=== PATIENT | female | born 1995 | race Caucasian/White ===

== ENCOUNTER 2016-03-26 22:34 | Emergency (ER) | payer MEDICAID ==
[2016-03-26 22:51] VITALS: TEMP 98.6; BMI 39.4
--- NOTE | 2016-03-27 00:46 | EDPRACDOC ---
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 PT DENIES AGGRAVATING OR ALLEVIATING SYMPTOMS AT THIS TIME. Chest Pain Location: Reports: Substernal, Left Chest Pain Radiation: Reports: Arm (L) Symptoms Occur: Reports: Suddenly Cardiac Risk Factors: Reports: Family History (GREAT GREAT GRANDMOTHER IN 20'S PASSED WITH AMI) Cardiac History of: Reports: None PE Risk Factors: Reports: Control Pills Medications within 24 Hours: Reports: None Prehospital Care: Reports: None Pain Came On: Reports: Suddenly Pain Status: Present Now Pain Description: Reports: Pressure Pain Severity: Mild Pain Worsens With: Reports: Nothing Pain Improves With: Reports: Nothing Associated Signs and Symptoms: Reports: None <Sue Cavanaugh - Last Filed: 03/27/16 02:28> <La Ryan - Last Filed: 03/27/16 04:55> - General Information Chief Complaint: Generalized Weakness Stated Complaint: CHEST PRESSURE, NUMBNESS & HYPOTENSION Time Seen by Provider: 03/27/16 00:20 Home Medications: Home Medications Docusate Sodium [Colace] 100 mg PO TID #30 capsule 10/22/15 Allergies/Adverse Reactions: Allergies Allergy/AdvReac Type Severity Reaction Status Date / Time No Known Allergies Allergy Verified 10/22/15 00:38 ED Past Medical History - History Reviewed Yes Nurses notes reviewed and agree except as marked Travel Outside of [place] in the Last 3 Months?: No - Patient Medical History Psychological History: Reports: Depression Systemic History: Denies: Cancer Additional Past Medical History: INSOMNIA Surgical History: Denies: Hysterectomy - Family Medical History Reports: Hypertension (father, aunt, uncle,PGM), Diabetes (Uncle, PGF, Aunt), Cancer (PGF), Stroke (aunt), Cardiac Disorders (PGF, aunt, uncle, MGM) - Social Medical History Smoking Status: Never smoker ETOH: None Substance Abuse: None Lives With: Other Lives In: Home <Sue Cavanaugh - Last Filed: 03/27/16 02:28> EDM Review of Systems - Review of Systems ROS Negative Except as Marked: Yes All systems reviewed and were negative except as marked Constitutional: No Symptoms Reported. negative: Fever, Chills, Weakness, Fatigue, Loss of Appetite Eyes: No Symptoms Reported. negative: Redness, Blurred Vision, Double Vision, Discharge, Pain, Light Sensitive, Photophobia Ears: No Symptoms Reported. negative: Pain, Hearing Loss, Drainage, Ear Pulling Throat: No Symptoms Reported. negative: Pain, Swelling Nose: No Symptoms Reported. negative: Congestion, Bleeding, Discharge, Injection, Swelling, Deformity, Ecchymosis, Tender, Abrasion, Laceration Mouth: No Symptoms Reported. negative: Pain, Drooling Respiratory: No Symptoms Reported. negative: Cough, Brassy Cough, Barky Cough, Shortness of Breath, Wheezing, Hemoptysis Cardiovascular: Chest Pain. negative: Cyanosis, Edema, Orthopnea, Palpitations , PND, Syncope, Skin Mottling Gastrointestinal: No Symptoms Reported. negative: Pain, Constipation, Nausea, Vomiting, Diarrhea, Melena, Formula Intolerance Genitourinary: No Symptoms Reported. negative: Dysuria, Hematuria, Frequency, Discharge, Bleeding, Testicular Pain, Neurological: No Symptoms Reported. negative: Headache, Dizziness, Seizure, Numbness, Weakness, Speech Difficulty, Gait Difficulty Musculoskeletal: No Symptoms Reported. negative: Neck, Chestwall, Ribs, Back, Shoulder, Arm, Elbow, Forearm, Wrist, Hand, Pelvis, Hip, Femur, Knee, Leg, Ankle , Foot Integumentary: No Symptoms Reported. negative: Itching, Rash, Bruising, Wound Allergic/Immunologic: No Symptoms Reported. negative: Hives, Itching Hematologic: No Symptoms Reported. negative: Lymphadenopathy, Easy Bruising, Easy Bleeding Endocrine: No Symptoms Reported. negative: Weight Gain, Weight Loss Psychiatric: No Symptoms Reported. negative: Anxiety, Depression, Hallucinations, Insomnia, Suicidal <Sue Cavanaugh - Last Filed: 03/27/16 02:28> - Physical Exam Constitutional: No apparent distress, Alert (Awake) Oriented to: Time, Person, Place Last recorded Vital Signs: Last Vital Signs Temp 98.6 F 03/26/16 22:44 Pulse 70 03/27/16 00:00 Resp 20 03/27/16 00:00 BP 119/78 03/27/16 00:00 Pulse Ox 98 03/27/16 00:00 Oxygen Pulse Oxygen Saturation 98 O2 Device Room Air Oxygen Flow Rate Fraction of Inspired Oxygen ( FIO2) - HEENT Head: Normal ( normocephalic) Eye Exam: Normal (PERRL, EOMI, Sclera white) Oropharynx: Normal (Pharynx:Moist without exudate,Gums-no swelling) Tympanic Membrane: Normal ENT EAC: Normal TMJ: Normal Nose: No Symptoms Reported (septum midline) Neck: Normal (FROM, trachea at midline) - Respiratory/Cardiovascular Respiratory: Normal - CTA (BBS clear to auscultation without adventitious sounds ) Cardiovascular: Normal (RRR without murmur, gallop or rub) - GI Auscultation: Normal (NABS) Palpation: Normal (Soft,No rebound or guarding, non distended) Tenderness: Non tender Fish's Sign: Negative - Musculoskeletal Back: Normal (Non-Tender) Extremities: Normal (Normal tone, Pulses 2+ No cyanosis or edema, FROM) - Integumentary Skin: Normal, Warm, Dry Lymphatics: Normal (no adenopathy) - Neurologic Memory Impaired: Normal Motor Function: Normal (Normal tone, Pulses 2+ No cyanosis or edema, FROM) Cranial Nerve: Normal (CN II-X11 intact sensation, strength 5/5) Cerebellar: Normal Mood Description: Normal Perception: Normal <Sue Cavanaugh - Last Filed: 03/27/16 02:28> - Physical Exam Last recorded Vital Signs: Last Vital Signs Temp 98.6 F 03/26/16 22:44 Pulse 72 03/27/16 02:41 Resp 18 03/27/16 02:41 BP 101/67 03/27/16 02:41 Pulse Ox 99 03/27/16 02:41 Oxygen Pulse Oxygen Saturation 99 O2 Device Room Air Oxygen Flow Rate Fraction of Inspired Oxygen ( FIO2) <La Ryan - Last Filed: 03/27/16 04:55> ED Chest Pain Exam - Respiratory/Cardiovascular Respiratory: Normal - CTA Cardiovascular/Chest: Normal Radial Pulse: Normal Femoral Pulse: Normal Pedal Pulse: Normal Carotid Arteries: Normal Chest Palpation: Normal <Sue Cavanaugh - Last Filed: 03/27/16 02:28> - Differential Diagnosis Esophageal reflux/spasm, Gastritis, Myocardial infarction, Pericarditis, Pleuritis, Pneumonia - Action Patient received Aspirin within last 24 hours?: No ASA given in the ED: Yes Patient received Beta Gomez within last 24hrs: No Beta Gomez held due to: Other-specify below* (ATYPICAL CARDIAC SYMPTOMS) - Results All Results Reviewed and Normal except as Highlighted below: Yes 03/27/16 01:05 03/27/16 01:05 - EKG EKG #1 EKG Time: 00:32 -: Yes EKG interpreted by me Rate: bpm: 72 [place]: Normal Rhythm: NSR Block: None Hypertrophy: None - Diagnostic Imaging CXR Image interpreted by: Radiologist IMPRESSION: No active cardiopulmonary disease. <Sue Cavanaugh - Last Filed: 03/27/16 02:28> - Results 03/27/16 01:05 03/27/16 01:05 WBC 8.8 xk/uL (3.8-10.8) 03/27/16 01:05 RBC 4.34 xM/uL (4.20-5.40) 03/27/16 01:05 Hgb 12.7 g/dL (12.0-16.0) 03/27/16 01:05 Hct 37.6 % (36-47) 03/27/16 01:05 MCV 87 fL (81-99) 03/27/16 01:05 MCH 29.2 pg (27-32) 03/27/16 01:05 MCHC 33.7 g/dl (33-36) 03/27/16 01:05 RDW 13.0 % (11.5-14.5) 03/27/16 01:05 Plt Count 259 xk/uL (130-400) 03/27/16 01:05 MPV 8.1 fL (7.4-10.4) 03/27/16 01:05 Neut % (Auto) 60.8 % (45-76) 03/27/16 01:05 Lymph % (Auto) 32.2 % (17-44) 03/27/16 01:05 [place] % (Auto) 4.4 % (3-10) 03/27/16 01:05 Eos % (Auto) 1.8 % (0-5) 03/27/16 01:05 Baso % (Auto) 0.8 % (0-2) 03/27/16 01:05 Absolute Neuts (auto) 5.28 xk/uL (1.7-8.2) 03/27/16 01:05 Absolute Lymphs (auto) 2.82 xk/uL (0.65-4.75) 03/27/16 01:05 D-Dimer Quant (PE/DVT) 1552 ng/mL (<500) H 03/27/16 02:41 Sodium 140 mEq/L (137-146) 03/27/16 01:05 Potassium 3.8 mEq/L (3.5-5.1) 03/27/16 01:05 Chloride 104 mEq/L (98-107) 03/27/16 01:05 Carbon Dioxide 25 mMOL/L (22-33) 03/27/16 01:05 Anion Gap 15 mEq/L (8-16) 03/27/16 01:05 BUN 11 MG/DL (7-17) 03/27/16 01:05 Creatinine 0.70 MG/DL (0.52-1.04) 03/27/16 01:05 Estimated GFR (MDRD) > 60 mL/min (>=60) 03/27/16 01:05 Glucose 87 MG/DL (70-99) 03/27/16 01:05 Calculated Osmolality 267 MOs/Kg (270-290) L 03/27/16 01:05 Calcium 8.9 MG/DL (8.4-10.2) 03/27/16 01:05 Corrected Calcium 9.0 MG/DL (8.4-10.2) 03/27/16 01:05 Total Bilirubin 0.3 MG/DL (0.2-1.3) 03/27/16 01:05 AST 30 IU/L (14-36) 03/27/16 01:05 ALT 29 IU/L (9-52) 03/27/16 01:05 Alkaline Phosphatase 70 IU/L (38-126) 03/27/16 01:05 Troponin I < 0.01 ng/mL (<.04) 03/27/16 02:41 Total Protein 7.6 G/DL (6.3-8.2) 03/27/16 01:05 Albumin 3.9 G/DL (3.5-5.0) 03/27/16 01:05 Urine Color Yellow 03/27/16 00:35 Urine Clarity Clear 03/27/16 00:35 Urine pH 7.0 (5.0-8.0) 03/27/16 00:35 Ur Specific [place] 1.015 (1.003-1.035) 03/27/16 00:35 Urine Protein Neg (NEG/TRACE) 03/27/16 00:35 Urine Glucose (UA) Neg (NEGATIVE) 03/27/16 00:35 Urine Ketones Neg (NEGATIVE) 03/27/16 00:35 Urine Occult Blood 1+ (NEG/TRACE) H 03/27/16 00:35 Urine Nitrite Neg (NEGATIVE) 03/27/16 00:35 Urine Bilirubin Neg (NEGATIVE) 03/27/16 00:35 Urine Urobilinogen <2.0 MG/DL (0-1) 03/27/16 00:35 Ur Leukocyte Esterase Neg (NEGATIVE) 03/27/16 00:35 Urine RBC 0-2 (0-5) 03/27/16 00:35 Urine WBC 0-2 (0-5) 03/27/16 00:35 Ur Epithelial Cells 2+ 03/27/16 00:35 Urine Test Neg (NEGATIVE) 03/27/16 00:35 Urine Opiates Screen Neg (NEGATIVE) 03/27/16 00:35 Ur Oxycodone Screen Neg (NEGATIVE) 03/27/16 00:35 Urine Methadone Screen Neg (NEGATIVE) 03/27/16 00:35 Ur Barbiturates Screen Neg (NEGATIVE) 03/27/16 00:35 Ur Tricyclics Screen Neg (NEGATIVE) 03/27/16 00:35 Ur Phencyclidine Scrn Neg (NEGATIVE) 03/27/16 00:35 Ur Amphetamines Screen Neg (NEGATIVE) 03/27/16 00:35 U Methamphetamines Scrn Neg (NEGATIVE) 03/27/16 00:35 Urine MDMA Screen Neg (NEGATIVE) 03/27/16 00:35 U Benzodiazepines Scrn Neg (NEGATIVE) 03/27/16 00:35 Urine Cocaine Screen Neg (NEGATIVE) 03/27/16 00:35 Ur THC Screen Neg (NEGATIVE) 03/27/16 00:35 Lab Results 03/27/16 03/27/16 03/27/16 02:41 02:41 01:05 WBC 8.8 RBC 4.34 Hgb 12.7 Hct 37.6 MCV 87 MCH 29.2 MCHC 33.7 RDW 13.0 Plt Count 259 MPV 8.1 Neut % (Auto) 60.8 Lymph % (Auto) 32.2 [place] % (Auto) 4.4 Eos % (Auto) 1.8 Baso % (Auto) 0.8 Absolute Neuts (auto) 5.28 Absolute Lymphs (auto) 2.82 D-Dimer Quant (PE/DVT) 1552 H Sodium Potassium Chloride Carbon Dioxide Anion Gap BUN Creatinine Estimated GFR (MDRD) Glucose Calculated Osmolality Calcium Corrected Calcium Total Bilirubin AST ALT Alkaline Phosphatase Troponin I < 0.01 Total Protein Albumin Urine Color Urine Clarity Urine pH Ur Specific [place] Urine Protein Urine Glucose (UA) Urine Ketones Urine Occult Blood Urine Nitrite Urine Bilirubin Urine Urobilinogen Ur Leukocyte Esterase Urine RBC Urine WBC Ur Epithelial Cells Urine Test Urine Opiates Screen Ur Oxycodone Screen Urine Methadone Screen Ur Barbiturates Screen Ur Tricyclics Screen Ur Phencyclidine Scrn Ur Amphetamines Screen U Methamphetamines Scrn Urine MDMA Screen U Benzodiazepines Scrn Urine Cocaine Screen Ur THC Screen 03/27/16 03/27/16 03/27/16 01:05 00:35 00:35 WBC RBC Hgb Hct MCV MCH MCHC RDW Plt Count MPV Neut % (Auto) Lymph % (Auto) [place] % (Auto) Eos % (Auto) Baso % (Auto) Absolute Neuts (auto) Absolute Lymphs (auto) D-Dimer Quant (PE/DVT) Sodium 140 Potassium 3.8 Chloride 104 Carbon Dioxide 25 Anion Gap 15 BUN 11 Creatinine 0.70 Estimated GFR (MDRD) > 60 Glucose 87 Calculated Osmolality 267 L Calcium 8.9 Corrected Calcium 9.0 Total Bilirubin 0.3 AST 30 ALT 29 Alkaline Phosphatase 70 Troponin I < 0.01 Total Protein 7.6 Albumin 3.9 Urine Color Yellow Urine Clarity Clear Urine pH 7.0 Ur Specific [place] 1.015 Urine Protein Neg Urine Glucose (UA) Neg Urine Ketones Neg Urine Occult Blood 1+ H Urine Nitrite Neg Urine Bilirubin Neg Urine Urobilinogen <2.0 Ur Leukocyte Esterase Neg Urine RBC 0-2 Urine WBC 0-2 Ur Epithelial Cells 2+ Urine Test Urine Opiates Screen Neg Ur Oxycodone Screen Neg Urine Methadone Screen Neg Ur Barbiturates Screen Neg Ur Tricyclics Screen Neg Ur Phencyclidine Scrn Neg Ur Amphetamines Screen Neg U Methamphetamines Scrn Neg Urine MDMA Screen Neg U Benzodiazepines Scrn Neg Urine Cocaine Screen Neg Ur THC Screen Neg 03/27/16 00:35 WBC RBC Hgb Hct MCV MCH MCHC RDW Plt Count MPV Neut % (Auto) Lymph % (Auto) [place] % (Auto) Eos % (Auto) Baso % (Auto) Absolute Neuts (auto) Absolute Lymphs (auto) D-Dimer Quant (PE/DVT) Sodium Potassium Chloride Carbon Dioxide Anion Gap BUN Creatinine Estimated GFR (MDRD) Glucose Calculated Osmolality Calcium Corrected Calcium Total Bilirubin AST ALT Alkaline Phosphatase Troponin I Total Protein Albumin Urine Color Urine Clarity Urine pH Ur Specific [place] Urine Protein Urine Glucose (UA) Urine Ketones Urine Occult Blood Urine Nitrite Urine Bilirubin Urine Urobilinogen Ur Leukocyte Esterase Urine RBC Urine WBC Ur Epithelial Cells Urine Test Neg Urine Opiates Screen Ur Oxycodone Screen Urine Methadone Screen Ur Barbiturates Screen Ur Tricyclics Screen Ur Phencyclidine Scrn Ur Amphetamines Screen U Methamphetamines Scrn Urine MDMA Screen U Benzodiazepines Scrn Urine Cocaine Screen Ur THC Screen Laboratory Results - last 24 hr 03/27/16 03/27/16 03/27/16 00:35 00:35 00:35 WBC RBC Hgb Hct MCV MCH MCHC RDW Plt Count MPV Neut % (Auto) Lymph % (Auto) [place] % (Auto) Eos % (Auto) Baso % (Auto) Absolute Neuts (auto) Absolute Lymphs (auto) D-Dimer Quant (PE/DVT) Sodium Potassium Chloride Carbon Dioxide Anion Gap BUN Creatinine Estimated GFR (MDRD) Glucose Calculated Osmolality Calcium Corrected Calcium Total Bilirubin AST ALT Alkaline Phosphatase Troponin I Total Protein Albumin Urine Color Yellow Urine Clarity Clear Urine pH 7.0 Ur Specific [place] 1.015 Urine Protein Neg Urine Glucose (UA) Neg Urine Ketones Neg Urine Occult Blood 1+ H Urine Nitrite Neg Urine Bilirubin Neg Urine Urobilinogen <2.0 Ur Leukocyte Esterase Neg Urine RBC 0-2 Urine WBC 0-2 Ur Epithelial Cells 2+ Urine Test Neg Urine Opiates Screen Neg Ur Oxycodone Screen Neg Urine Methadone Screen Neg Ur Barbiturates Screen Neg Ur Tricyclics Screen Neg Ur Phencyclidine Scrn Neg Ur Amphetamines Screen Neg U Methamphetamines Scrn Neg Urine MDMA Screen Neg U Benzodiazepines Scrn Neg Urine Cocaine Screen Neg Ur THC Screen Neg 03/27/16 03/27/16 03/27/16 01:05 01:05 02:41 WBC 8.8 RBC 4.34 Hgb 12.7 Hct 37.6 MCV 87 MCH 29.2 MCHC 33.7 RDW 13.0 Plt Count 259 MPV 8.1 Neut % (Auto) 60.8 Lymph % (Auto) 32.2 [place] % (Auto) 4.4 Eos % (Auto) 1.8 Baso % (Auto) 0.8 Absolute Neuts (auto) 5.28 Absolute Lymphs (auto) 2.82 D-Dimer Quant (PE/DVT) Sodium 140 Potassium 3.8 Chloride 104 Carbon Dioxide 25 Anion Gap 15 BUN 11 Creatinine 0.70 Estimated GFR (MDRD) > 60 Glucose 87 Calculated Osmolality 267 L Calcium 8.9 Corrected Calcium 9.0 Total Bilirubin 0.3 AST 30 ALT 29 Alkaline Phosphatase 70 Troponin I < 0.01 < 0.01 Total Protein 7.6 Albumin 3.9 Urine Color Urine Clarity Urine pH Ur Specific [place] Urine Protein Urine Glucose (UA) Urine Ketones Urine Occult Blood Urine Nitrite Urine Bilirubin Urine Urobilinogen Ur Leukocyte Esterase Urine RBC Urine WBC Ur Epithelial Cells Urine Test Urine Opiates Screen Ur Oxycodone Screen Urine Methadone Screen Ur Barbiturates Screen Ur Tricyclics Screen Ur Phencyclidine Scrn Ur Amphetamines Screen U Methamphetamines Scrn Urine MDMA Screen U Benzodiazepines Scrn Urine Cocaine Screen Ur THC Screen 03/27/16 02:41 WBC RBC Hgb Hct MCV MCH MCHC RDW Plt Count MPV Neut % (Auto) Lymph % (Auto) [place] % (Auto) Eos % (Auto) Baso % (Auto) Absolute Neuts (auto) Absolute Lymphs (auto) D-Dimer Quant (PE/DVT) 1552 H Sodium Potassium Chloride Carbon Dioxide Anion Gap BUN Creatinine Estimated GFR (MDRD) Glucose Calculated Osmolality Calcium Corrected Calcium Total Bilirubin AST ALT Alkaline Phosphatase Troponin I Total Protein Albumin Urine Color Urine Clarity Urine pH Ur Specific [place] Urine Protein Urine Glucose (UA) Urine Ketones Urine Occult Blood Urine Nitrite Urine Bilirubin Urine Urobilinogen Ur Leukocyte Esterase Urine RBC Urine WBC Ur Epithelial Cells Urine Test Urine Opiates Screen Ur Oxycodone Screen Urine Methadone Screen Ur Barbiturates Screen Ur Tricyclics Screen Ur Phencyclidine Scrn Ur Amphetamines Screen U Methamphetamines Scrn Urine MDMA Screen U Benzodiazepines Scrn Urine Cocaine Screen Ur THC Screen Laboratory Results 03/27/16 01:05 03/27/16 01:05 - Diagnostic Imaging CXR Patient Name: RUPINDER HERNANDEZ LOC: ED : 1995 AGE: 20 Order Date:03/27/16 Date of Service: Report # [id number] Ord Physician: Sue Cavanaugh Exam # [id number] Emergency Physician: La Ryan MD Exam(s): [id number] CT/CT ANGIO CHEST CLINICAL DATA: Acute onset of generalized chest pain and elevated D-dimer. Weakness and hypotension. Initial encounter. EXAM: CT ANGIOGRAPHY CHEST WITH CONTRAST TECHNIQUE: Multidetector CT imaging of the chest was performed using the standard protocol during bolus administration of intravenous contrast. Multiplanar CT image reconstructions and MIPs were obtained to evaluate the vascular anatomy. CONTRAST: 80 mL of Isovue 370 IV contrast COMPARISON: Chest radiograph performed earlier today at 1:09 a.m. FINDINGS: There is no evidence of pulmonary embolus. The lungs appear essentially clear bilaterally. There is no evidence of significant focal consolidation, pleural effusion or pneumothorax. No masses are identified; no abnormal focal contrast enhancement is seen. The mediastinum is unremarkable in appearance. No mediastinal lymphadenopathy is seen. No pericardial effusion is identified. Residual thymic tissue is within normal limits. The great vessels are grossly unremarkable in appearance. Incidental note is made of a direct origin of the left vertebral artery from the aortic arch. No axillary lymphadenopathy is seen. The visualized portions of the thyroid gland are unremarkable in appearance. The visualized portions of the liver and spleen are unremarkable. The visualized portions of the pancreas, gallbladder, stomach, adrenal glands and kidneys are within normal limits. No acute osseous abnormalities are seen. Review of the MIP images confirms the above findings. IMPRESSION: No evidence of pulmonary embolus. Lungs clear bilaterally. Electronically Signed By: Tom Resendiz M.D. On: 03/27/2016 04:49 Electronically Signed By: Tom Resendiz MD Electronically Signed Date/Time: 451 Dictate Date/Time: 03/27/16446 Technologist: Melanie Rodrigez Transcribed By: Hugo Transcribed Date/Time: 03/27/16 0449 <La Ryan - Last Filed: 03/27/16 04:55> <Sue Cavanaugh - Last Filed: 03/27/16 02:28> - Departure Disposition: Home Education/Counseling Given To: Patient Education/Counseling Given Regarding: Diagnosis, Treatment, Prognosis <La Ryan N - Last Filed: 03/27/16 04:55> - Departure Condition: Good Final Diagnosis: Atypical chest pain Instructions: Weakness (General), Chest Pain (ED), Chest Wall Pain Referrals: None,No Provider [Primary Care Provider] - One Week Prescriptions: No Action Docusate Sodium [Colace] 100 mg PO TID #30 capsule
[2016-03-27 01:01] LABS: LEUKOCYTES/URINE NEG (NEGATIVE); NITRITE/URINE NEG (NEGATIVE); RBC/URINE 0-2 (0-5); URINE OCCULT BLOOD 1+ (NEG/TRACE); WBC/URINE 0-2 (0-5)
[2016-03-27 01:20] LABS: AUTOMATED BASOPHIL 0.8 % (0-2); AUTOMATED EOSINOPHIL 1.8 % (0-5); AUTOMATED LYMPH 32.2 % (17-44); AUTOMATED MONOCYTE 4.4 % (3-10); AUTOMATED NEUTROPHIL 60.8 % (45-76); MPV 8.1 fL (7.4-10.4)
[2016-03-27 01:27] LABS: BLOOD UREA NITROGEN 11 MG/DL (7-17); CALCIUM 8.9 MG/DL (8.4-10.2); CALCULATED OSMOLALITY 267 MOs/Kg (270-290); CHLORIDE 104 mEq/L (98-107); GLUCOSE 87 MG/DL (70-99); SODIUM LEVEL 140 mEq/L (137-146); TOTAL PROTEIN 7.6 G/DL (6.3-8.2)
[2016-03-27 01:29] LABS: ALL NEG? YES; MDMA* NEG (NEGATIVE); METHAMPHETAMINES NEG (NEGATIVE); OXYCODONE NEG (NEGATIVE)
--- NOTE | 2016-03-27 01:52 | DIRPT ---
CLINICAL DATA: Chest pain. Weakness. Low blood pressure. EXAM: CHEST 2 VIEW COMPARISON: 02/24/2014 FINDINGS: The heart size and mediastinal contours are within normal limits. Both lungs are clear. The visualized skeletal structures are unremarkable. IMPRESSION: No active cardiopulmonary disease. Electronically Signed By: Brett Mina M.D. On: 03/27/2016 01:49
[2016-03-27] MEDS ORDERED: ASPIRIN 325 MG TAB PO ONE (02:40)
[2016-03-27] MEDS ORDERED: Pharmacy Review for Metformin - IV Contrast Given SCH (04:00)
--- NOTE | 2016-03-27 04:51 | DIRPT ---
CLINICAL DATA: Acute onset of generalized chest pain and elevated D-dimer. Weakness and hypotension. Initial encounter. EXAM: CT ANGIOGRAPHY CHEST WITH CONTRAST TECHNIQUE: Multidetector CT imaging of the chest was performed using the standard protocol during bolus administration of intravenous contrast. Multiplanar CT image reconstructions and MIPs were obtained to evaluate the vascular anatomy. CONTRAST: 80 mL of Isovue 370 IV contrast COMPARISON: Chest radiograph performed earlier today at 1:09 a.m. FINDINGS: There is no evidence of pulmonary embolus. The lungs appear essentially clear bilaterally. There is no evidence of significant focal consolidation, pleural effusion or pneumothorax. No masses are identified; no abnormal focal contrast enhancement is seen. The mediastinum is unremarkable in appearance. No mediastinal lymphadenopathy is seen. No pericardial effusion is identified. Residual thymic tissue is within normal limits. The great vessels are grossly unremarkable in appearance. Incidental note is made of a direct origin of the left vertebral artery from the aortic arch. No axillary lymphadenopathy is seen. The visualized portions of the thyroid gland are unremarkable in appearance. The visualized portions of the liver and spleen are unremarkable. The visualized portions of the pancreas, gallbladder, stomach, adrenal glands and kidneys are within normal limits. No acute osseous abnormalities are seen. Review of the MIP images confirms the above findings. IMPRESSION: No evidence of pulmonary embolus. Lungs clear bilaterally. Electronically Signed By: Tom Resendiz M.D. On: 03/27/2016 04:49
[2016-03-27 05:04] VITALS: BP 115/64; PULSE 75
== END 2016-03-27 05:04 | disposition home or self-care (01) ==
LOC: ED 22:34
DX: R07.89 Other chest pain (principal); Z82.49 Family history of ischemic heart disease and other diseases of the circulatory system
CPT/HCPCS: 36415; 71020; 71275; 80053; 80307; 81001; 81025; 84484; 85025; 85379; 93005; 99283; A9698; J3490

== ENCOUNTER 2016-04-04 04:37 | Inpatient (IN) | payer MEDICAID ==
[2016-04-04 04:56] VITALS: BMI 39.3
[2016-04-04] MEDS ORDERED: ONDANSETRON HCL 4 MG/2 ML VIAL IV ONE (05:04)
[2016-04-04] MEDS ORDERED: HYDROmorphone 1 MG INJECTION IV ONE ×2 (05:04→08:06)
[2016-04-04] MEDS ORDERED: NS 1,000 ML IV ONE ×2 (05:04→06:51)
--- NOTE | 2016-04-04 05:05 | EDPRACDOC ---
- General Information Information Source: Patient Mode Of Arrival: Car - History of Present Illness Onset: 0200 Pain Location: Reports: Diffuse Pain Context: Reports: Spontaneous Pain Severity: Mild Pain Quality: Reports: Aching, Colicky Pain Radiation: Reports: No Radiation Last Menstrual Period: 03/15/16 : No Abortus: 0 Blood Type: B+ <Shmuel Villalpando - Last Filed: 04/04/16 06:50> <Kuldip Silva - Last Filed: 04/04/16 08:54> - General Information Chief Complaint: Abdominal Pain Stated Complaint: ABD PAIN Time Seen by Provider: 04/04/16 05:03 Home Medications: Home Medications Fluoxetine [Prozac] 20 mg PO DAILY 04/04/16 Norgestimate-Ethinyl Estradiol [Trinessa Tablet] 1 each PO DAILY 04/04/16 Trazodone HCl [Desyrel] 25 mg PO QHS 04/04/16 Allergies/Adverse Reactions: Allergies Allergy/AdvReac Type Severity Reaction Status Date / Time No Known Allergies Allergy Verified 04/04/16 04:52 - History of Present Illness HPI: PATIENT PRESENTS C/O ABDOMINAL PAIN FOR 1 WEEK INTERMITTENT CRAMPING RADIATES TO BACK. SEVERE DIARRHEA. NO FEVER. NO N/V (Kwasi,Shmuel) ED Past Medical History - History Reviewed Yes Nurses notes reviewed and agree except as marked Travel Outside of [place] in the Last 3 Months?: No - Patient Medical History Psychological History: Denies: Depression Systemic History: Denies: Cancer Additional Past Medical History: INSOMNIA Surgical History: Denies: Hysterectomy - Family Medical History Reports: Hypertension (father, aunt, uncle,PGM), Diabetes (Uncle, PGF, Aunt), Cancer (PGF), Stroke (aunt), Cardiac Disorders (PGF, aunt, uncle, MGM) - Social Medical History Smoking Status: Never smoker ETOH: None Substance Abuse: None Lives With: Family Lives In: Home <Shmuel Villalpando - Last Filed: 04/04/16 06:50> EDM Review of Systems - Review of Systems ROS Negative Except as Marked: Yes All systems reviewed and were negative except as marked Constitutional: No Symptoms Reported. negative: Fever, Chills, Weakness, Fatigue, Loss of Appetite Eyes: No Symptoms Reported. negative: Redness, Blurred Vision, Double Vision, Discharge, Pain, Light Sensitive, Photophobia Ears: No Symptoms Reported. negative: Pain, Hearing Loss, Drainage, Ear Pulling Throat: No Symptoms Reported. negative: Pain, Swelling Nose: No Symptoms Reported. negative: Congestion, Bleeding, Discharge, Injection, Swelling, Deformity, Ecchymosis, Tender, Abrasion, Laceration Mouth: No Symptoms Reported. negative: Pain, Drooling Respiratory: No Symptoms Reported. negative: Cough, Brassy Cough, Barky Cough, Shortness of Breath, Wheezing, Hemoptysis Cardiovascular: No Symptoms Reported. negative: Chest Pain, Palpitations, Syncope, Edema, Orthopnea, PND, Skin Mottling, Cyanosis Gastrointestinal: Diarrhea, Pain. negative: Constipation, Formula Intolerance, Melena, Nausea, Vomiting Genitourinary: No Symptoms Reported. negative: Dysuria, Hematuria, Frequency, Discharge, Bleeding, Testicular Pain, Neurological: No Symptoms Reported. negative: Headache, Dizziness, Seizure, Numbness, Weakness, Speech Difficulty, Gait Difficulty Musculoskeletal: No Symptoms Reported. negative: Neck, Chestwall, Ribs, Back, Shoulder, Arm, Elbow, Forearm, Wrist, Hand, Pelvis, Hip, Femur, Knee, Leg, Ankle , Foot Integumentary: No Symptoms Reported. negative: Itching, Rash, Bruising, Wound Allergic/Immunologic: No Symptoms Reported. negative: Hives, Itching Hematologic: No Symptoms Reported. negative: Lymphadenopathy, Easy Bruising, Easy Bleeding Endocrine: No Symptoms Reported. negative: Weight Gain, Weight Loss Psychiatric: No Symptoms Reported. negative: Anxiety, Depression, Hallucinations, Insomnia, Suicidal <VillalpandoShmuel olivares - Last Filed: 04/04/16 06:50> - Physical Exam Constitutional: Alert (Awake), No apparent distress Oriented to: Time, Person, Place - HEENT Head: Normal ( normocephalic) Eye Exam: Normal (PERRL, EOMI, Sclera white) Oropharynx: Normal (Pharynx:Moist without exudate,Gums-no swelling) Tympanic Membrane: Normal ENT EAC: Normal TMJ: Normal Nose: No Symptoms Reported (septum midline) Neck: Normal (FROM, trachea at midline) - Respiratory/Cardiovascular Respiratory: Normal - CTA (BBS clear to auscultation without adventitious sounds ) Cardiovascular: Normal (RRR without murmur, gallop or rub) - GI Auscultation: Normal (NABS) Palpation: Normal (Soft,No rebound or guarding, non distended) Tenderness: Non tender Fish's Sign: Negative - Musculoskeletal Back: Normal (Non-Tender) Extremities: Normal (Normal tone, Pulses 2+ No cyanosis or edema, FROM) - Integumentary Skin: Normal, Warm, Dry Lymphatics: Normal (no adenopathy) - Neurologic Memory Impaired: Normal Motor Function: Normal (Normal tone, Pulses 2+ No cyanosis or edema, FROM) Cranial Nerve: Normal (CN II-X11 intact sensation, strength 5/5) Cerebellar: Normal Mood Description: Normal Perception: Normal <Shmuel Villalpando - Last Filed: 04/04/16 06:50> - Results 04/04/16 05:25 04/04/16 05:25 <Shmuel Villalpando - Last Filed: 04/04/16 06:50> - Results 04/04/16 05:25 04/04/16 05:25 <Kuldip Silva - Last Filed: 04/04/16 08:54> - Results WBC 12.7 xk/uL (3.8-10.8) H 04/04/16 05:25 RBC 4.36 xM/uL (4.20-5.40) 04/04/16 05:25 Hgb 12.6 g/dL (12.0-16.0) 04/04/16 05:25 Hct 38.2 % (36-47) 04/04/16 05:25 MCV 88 fL (81-99) 04/04/16 05:25 MCH 28.9 pg (27-32) 04/04/16 05:25 MCHC 33.0 g/dl (33-36) 04/04/16 05:25 RDW 12.9 % (11.5-14.5) 04/04/16 05:25 Plt Count 247 xk/uL (130-400) 04/04/16 05:25 MPV 8.1 fL (7.4-10.4) 04/04/16 05:25 Neut % (Auto) 79.3 % (45-76) H 04/04/16 05:25 Lymph % (Auto) 15.3 % (17-44) L 04/04/16 05:25 [place] % (Auto) 4.0 % (3-10) 04/04/16 05:25 Eos % (Auto) 0.8 % (0-5) 04/04/16 05:25 Baso % (Auto) 0.6 % (0-2) 04/04/16 05:25 Absolute Neuts (auto) 10.03 xk/uL (1.7-8.2) H 04/04/16 05:25 Absolute Lymphs (auto) 1.91 xk/uL (0.65-4.75) 04/04/16 05:25 Sodium 143 mEq/L (137-146) 04/04/16 05:25 Potassium 3.5 mEq/L (3.5-5.1) 04/04/16 05:25 Chloride 107 mEq/L (98-107) 04/04/16 05:25 Carbon Dioxide 22 mMOL/L (22-33) 04/04/16 05:25 Anion Gap 18 mEq/L (8-16) H 04/04/16 05:25 BUN 8 MG/DL (7-17) 04/04/16 05:25 Creatinine 0.60 MG/DL (0.52-1.04) 04/04/16 05:25 Estimated GFR (MDRD) > 60 mL/min (>=60) 04/04/16 05:25 Glucose 103 mg/dL (70-99) H 04/04/16 05:25 Calculated Osmolality 273 MOs/Kg (270-290) 04/04/16 05:25 Calcium 9.5 MG/DL (8.4-10.2) 04/04/16 05:25 Total Bilirubin 0.3 MG/DL (0.2-1.3) 04/04/16 05:25 AST 24 IU/L (14-36) 04/04/16 05:25 ALT 40 IU/L (9-52) 04/04/16 05:25 Alkaline Phosphatase 73 IU/L (38-126) 04/04/16 05:25 Total Protein 7.8 G/DL (6.3-8.2) 04/04/16 05:25 Albumin 4.2 G/DL (3.5-5.0) 04/04/16 05:25 Lipase 46884 U/L (23-300) H 04/04/16 05:25 Urine Color Pale yellow 04/04/16 04:45 Urine Clarity Clear 04/04/16 04:45 Urine pH 6.0 (5.0-8.0) 04/04/16 04:45 Ur Specific [place] 1.005 (1.003-1.035) 04/04/16 04:45 Urine Protein Neg (NEG/TRACE) 04/04/16 04:45 Urine Glucose (UA) Neg (NEGATIVE) 04/04/16 04:45 Urine Ketones Neg (NEGATIVE) 04/04/16 04:45 Urine Occult Blood 1+ (NEG/TRACE) H 04/04/16 04:45 Urine Nitrite Neg (NEGATIVE) 04/04/16 04:45 Urine Bilirubin Neg (NEGATIVE) 04/04/16 04:45 Urine Urobilinogen <2.0 MG/DL (0-1) 04/04/16 04:45 Ur Leukocyte Esterase Neg (NEGATIVE) 04/04/16 04:45 Urine RBC 0-2 (0-5) 04/04/16 04:45 Ur Epithelial Cells Occ 04/04/16 04:45 Urine Bacteria Few (NEG/FEW) 04/04/16 04:45 Urine Test Neg (NEGATIVE) 04/04/16 04:45 Lab Results 04/04/16 04/04/16 04/04/16 05:25 05:25 04:45 WBC 12.7 H RBC 4.36 Hgb 12.6 Hct 38.2 MCV 88 MCH 28.9 MCHC 33.0 RDW 12.9 Plt Count 247 MPV 8.1 Neut % (Auto) 79.3 H Lymph % (Auto) 15.3 L [place] % (Auto) 4.0 Eos % (Auto) 0.8 Baso % (Auto) 0.6 Absolute Neuts (auto) 10.03 H Absolute Lymphs (auto) 1.91 Sodium 143 Potassium 3.5 Chloride 107 Carbon Dioxide 22 Anion Gap 18 H BUN 8 Creatinine 0.60 Estimated GFR (MDRD) > 60 Glucose 103 H Calculated Osmolality 273 Calcium 9.5 Total Bilirubin 0.3 AST 24 ALT 40 Alkaline Phosphatase 73 Total Protein 7.8 Albumin 4.2 Lipase 48604 H Urine Color Pale yellow Urine Clarity Clear Urine pH 6.0 Ur Specific [place] 1.005 Urine Protein Neg Urine Glucose (UA) Neg Urine Ketones Neg Urine Occult Blood 1+ H Urine Nitrite Neg Urine Bilirubin Neg Urine Urobilinogen <2.0 Ur Leukocyte Esterase Neg Urine RBC 0-2 Ur Epithelial Cells Occ Urine Bacteria Few Urine Test 04/04/16 04:45 WBC RBC Hgb Hct MCV MCH MCHC RDW Plt Count MPV Neut % (Auto) Lymph % (Auto) [place] % (Auto) Eos % (Auto) Baso % (Auto) Absolute Neuts (auto) Absolute Lymphs (auto) Sodium Potassium Chloride Carbon Dioxide Anion Gap BUN Creatinine Estimated GFR (MDRD) Glucose Calculated Osmolality Calcium Total Bilirubin AST ALT Alkaline Phosphatase Total Protein Albumin Lipase Urine Color Urine Clarity Urine pH Ur Specific [place] Urine Protein Urine Glucose (UA) Urine Ketones Urine Occult Blood Urine Nitrite Urine Bilirubin Urine Urobilinogen Ur Leukocyte Esterase Urine RBC Ur Epithelial Cells Urine Bacteria Urine Test Neg (Kuldip Silva) Decision Time to Discharge: 06:50 - Departure Yes I personally saw and evaluated the patient. Disposition: Home Education/Counseling Given To: Patient Education/Counseling Given Regarding: Diagnosis, Treatment, Prognosis, Follow Up <Shmuel Villalpando - Last Filed: 04/04/16 06:50> - Departure Disposition: Admit IP To This Hospital Decision to Admit Time: 08:54 Decision to admit date: 04/04/16 Decision to admit: from ED - Physician Consulted Hospitalist Time Called: 08:54 Provider Called: Taylor Mclaughlin Time Certified Dialysis Technician Returned Call: 08:54 <Kuldip Silva - Last Filed: 04/04/16 08:54> - Departure Condition: Stable Final Diagnosis: Abdominal pain Pancreatitis Qualifiers: Chronicity: acute Pancreatitis type: idiopathic Acute pancreatitis complication : no infection or necrosis Qualified Code(s): K85.00 - Idiopathic acute pancreatitis without necrosis or infection Referrals: None,No Provider [Primary Care Provider] - One Week Rafat Nesbitt MD [Staff Physician] - One Week Prescriptions: No Action Trazodone HCl [Desyrel] 25 mg PO QHS Fluoxetine [Prozac] 20 mg PO DAILY Norgestimate-Ethinyl Estradiol [Trinessa Tablet] 1 each PO DAILY
[2016-04-04 05:25] LABS: LEUKOCYTES/URINE NEG (NEGATIVE); NITRITE/URINE NEG (NEGATIVE); RBC/URINE 0-2 (0-5); URINE OCCULT BLOOD 1+ (NEG/TRACE)
[2016-04-04 05:38] LABS: AUTOMATED BASOPHIL 0.6 % (0-2); AUTOMATED EOSINOPHIL 0.8 % (0-5); AUTOMATED LYMPH 15.3 % (17-44); AUTOMATED NEUTROPHIL 79.3 % (45-76); MPV 8.1 fL (7.4-10.4)
[2016-04-04 05:49] LABS: BLOOD UREA NITROGEN 8 MG/DL (7-17); CALCIUM 9.5 MG/DL (8.4-10.2); CALCULATED OSMOLALITY 273 MOs/Kg (270-290); CHLORIDE 107 mEq/L (98-107); GLUCOSE 103 mg/dL (70-99); SODIUM LEVEL 143 mEq/L (137-146); TOTAL PROTEIN 7.8 G/DL (6.3-8.2)
[2016-04-04] MEDS ORDERED: Pharmacy Review for Metformin - IV Contrast Given SCH (06:00)
--- NOTE | 2016-04-04 06:49 | DIRPT ---
CLINICAL DATA: Abdominal pain, epigastric to the back for 1 day. Leukocytosis. EXAM: CT ABDOMEN AND PELVIS WITH CONTRAST TECHNIQUE: Multidetector CT imaging of the abdomen and pelvis was performed using the standard protocol following bolus administration of intravenous contrast. CONTRAST: 100 cc Isovue 370 intravenous COMPARISON: None. FINDINGS: Lower chest and abdominal wall: No contributory findings. Hepatobiliary: No focal liver abnormality.No evidence of biliary obstruction or stone. Pancreas: Newly seen diffusely expanded pancreas with interstitial and peripancreatic edema. No organized collection, necrosis, or vascular complication. Spleen: Unremarkable. Adrenals/Urinary Tract: Negative adrenals. Two punctate right renal calculi seen on coronal reformats. No hydronephrosis or ureteral calculus. Unremarkable bladder. Reproductive:No pathologic findings. Stomach/Bowel: No obstruction. No appendicitis. Vascular/Lymphatic: No acute vascular abnormality. No mass or adenopathy. Peritoneal: No ascites or pneumoperitoneum. Musculoskeletal: No acute abnormalities. Degenerative appearing sclerosis and spurring around the right sacroiliac joint. Small ribs present T12. L5-S1 degenerative endplate irregularity IMPRESSION: Acute pancreatitis without necrosis or collection. Right nephrolithiasis. Electronically Signed By: Chan Masters M.D. On: 04/04/2016 06:46
--- NOTE | 2016-04-04 08:26 | DIRPT ---
CLINICAL DATA: Abdominal pain with pancreatitis. EXAM: US ABDOMEN LIMITED - RIGHT UPPER QUADRANT COMPARISON: Abdominal CT 04/04/2016 FINDINGS: Gallbladder: 16 mm echogenic stone in the gallbladder. This gallstone demonstrates posterior acoustic shadowing. There is no gallbladder wall thickening. Reportedly, the patient does not have a Fish's sign but the patient is on pain medicine. Common bile duct: Diameter: 6 mm. Common bile duct tapers down to 2 mm in the distal aspect. Liver: Liver echogenicity is within normal limits without a focal lesion. No intrahepatic biliary dilatation. Main portal vein is patent. Trace amount of fluid between the liver and right kidney. IMPRESSION: Cholelithiasis. No evidence for cholecystitis. No biliary dilatation. Small amount of perihepatic fluid. This finding is similar to the recent CT. Electronically Signed By: Aldo Thomas M.D. On: 04/04/2016 08:24
[2016-04-04] MEDS ORDERED: SENNA CONCENTRATE TAB PO PRN (09:33)
[2016-04-04] MEDS ORDERED: BISACODYL 10 MG SUPP PR PRN (09:33)
[2016-04-04] MEDS ORDERED: ACETAMINOPHEN 325 MG/TAB TABLET PO PRN (09:33)
[2016-04-04] MEDS ORDERED: PROMETHAZINE 25 MG/ML VIAL IV PRN (09:33)
[2016-04-04] MEDS ORDERED: Albuterol/Ipratropium Neb 3 ML NEB NEB PRN (09:33)
[2016-04-04] MEDS ORDERED: ACETAMINOPHEN 325 MG SUPP PR PRN (09:33)
[2016-04-04] MEDS ORDERED: BENZONATATE 100 MG PERLES PO PRN (09:33)
[2016-04-04] MEDS ORDERED: TUSSIONEX 5 ML ORAL SYRINGE PO PRN (09:33)
--- NOTE | 2016-04-04 11:18 | HISTPHYS ---
- Chief Complaint Right upper quadrant and epigastric abdominal pain starting at 2:00 a.m. today at work after eating some peanut butter crackers. - History of Present Illness Patient is a 20-year-old morbidly obese white female who lives with her parents and her [id number] son. 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 At 2: 00 a.m. this morning she developed some severe diffuse abdominal pain particularly worse in the right upper quadrant what she was eating crackers covered with peanut butter. She said this 1st time this ever happened and came into the emergency room. Abdominal ultrasound showed numerous gallbladder stones. Her lipase was over 51,000. She felt miserable. She is a nonsmoker nondrinker. She tells me her sister had her gallbladder removed. Patient only smoked for about a month in 2016 and does not drink any alcohol nor does she do any illicit drugs. She does have a past medical history depression and takes oral contraceptives. - Medical History Cardiac History: Reports: No Significant History Respiratory History: Reports: No Significant History GI/ History: Reports: No Significant History Musculoskeletal History: Reports: No Significant History Systemic History: Reports: No Significant History Neurological History: Reports: No Significant History Psychological History: Reports: Depression (Goes to [facility] psychiatric services and gets her antidepressants there.) - Surgical History Reports: No Significant History. Denies: Hysterectomy - Medictions/Allergies Allergies No Known Allergies Allergy (Verified 04/04/16 04:52) Current Medication List: Reviewed Home Medications Fluoxetine [Prozac] 20 mg PO DAILY 04/04/16 Norgestimate-Ethinyl Estradiol [Trinessa Tablet] 1 tab PO DAILY 04/04/16 Sumatriptan Succinate [Imitrex] 100 mg PO DAILY PRN 04/04/16 Trazodone HCl [Desyrel] 25 mg PO QHS 04/04/16 - Family History Reports: Hypertension (father, aunt, uncle,PGM), Diabetes (Uncle, PGF, Aunt), Cancer (PGF), Stroke (aunt), Cardiac Disorders (PGF, aunt, uncle, MGM), Other ( Sister had cholelithiasis requiring removal of gallbladder) - Social History Travel Outside of [place] in the Last 3 Months?: No Lives: With Family Smoking Status: Former smoker Social History: Denies: Alcohol Use, Substance Use Disorder - Review of Systems Constitutional: No Symptoms Reported (No Fever, chills, wt loss/gain, diaphoresis,fatigue/malaise.) Eyes: No Symptoms Reported (No blurry vision, visual changes, eye pain, or eye redness.) Ears: No Symptoms Reported (No ear pain or discharge) Nose: No Symptoms Reported (No nasal discharge/congestion or bleeding) Mouth: No Symptoms Reported (No oropharyngeal lesions or erythema) Throat/Neck: No Symptoms Reported (No throat pain or swelling.No oropharyngeal lesions or erythema.) Respiratory: No Symptoms Reported (No cough, wheezing, or shortness of breath.) Cardiovascular: No Symptoms Reported (No chest pain or palpitations.) Gastrointestinal: Nausea, Abdominal Pain Genitourinary: No Symptoms Reported (No dysuria or hematuria.) Neurological: No Symptoms Reported (No headache, dizziness, seizures, or focal weakness.) Musculoskeletal:: No Symptoms Reported Integumentary: No Symptoms Reported (no rashes or lesions) Allergic/Immunologic: No Symptoms Reported (no rashes or lesions) Hematologic: No Symptoms Reported (No chronic anemia, bleeding, or easy bruising.), Other (Lymphatics- no lymph node swelling or pain.) Endocrine: No Symptoms Reported (No thyroid issues, polyuria, or polydipsia.) Psychiatric: Depression - Physical Exam Vital Signs: Initial Vitals Temperature 97.7 F 04/04/16 04:52 Pulse Rate 82 04/04/16 04:52 Respiratory Rate 18 04/04/16 04:52 Blood Pressure 153/78 04/04/16 04:52 Pulse Oxygen Saturation 96 04/04/16 04:52 Constitutional: Alert, Restless Oriented to: Time, Person, Place - HEENT Head: Normal (normocephalic, atraumatic.), Other (No cervical lymphadenopathy. No supraclavicular lymphadenopathy. Neck: No palpable mass, supple , trachea midline.) Eye: Normal (pupils equal, reactive to light, and round; EOMI, Sclera white) Oropharynx: Normal (Pharynx: Moist without exudate,Gums-no swelling, No oropharyngeal lesions or erythema, Mucous membranes are dry.) ENT EAC: Normal (No oropharyngeal lesions or erythema. Mucous membranes are dry. ) TMJ: Normal Nose: No Symptoms Reported (septum midline, Nares patent, without discharge or bleeding.) Respiratory: Normal - CTA (Clear to auscultation bilaterally. No wheezing, rales , rhonchi. Chest wall movements are symmetric. No use of accessory muscles to breathe.) Cardiovascular: Normal (RRR , Normal S1, S2. No murmurs, rubs, or gallops. PMI non-displaced. Carotids: no carotid bruits. No bradycardia or tachycardia. DP pulses 2+ bilaterally.) - GI Auscultation: Normal (normal active sounds) Palpation: Other (Positive Fish sign pendulous abdomen). negative: Enlarged liver, Enlarged spleen Tenderness: Moderate, RUQ (Positive Fish sign) Fish's Sign: Negative - Musculoskeletal Back: Normal (Non-Tender) Extremities: Normal (Normal tone, DP pulses 2+ bilaterally, No cyanosis or edema bilaterally, FROM bilaterally.) Spine: non-tender, full range of motion, normal inspection - Integumentary Skin: Normal (Clean, dry, and intact. No rashes. No lesions.) Lymphatics: Normal (No cervical lymphadenopathy. No supraclavicular lymphadenopathy.) - Neurologic Memory Impaired: Normal Motor Function: Normal (Motor 5/5 throughout.Normal tone, Pulses 2+ No cyanosis or edema, FROM) Cranial Nerve: Normal (CN II-XII intact sensation, strength 5/5) Cerebellar: Normal (Babinski: toes downgoing bilaterally. Intact Finger to nose. Sensory grossly intact to light touch. Intact rapid alternating movements bilaterally. No pronator drift.) Mood Description: Normal (Fully oriented. Normal and appropriate affect.) Perception: Normal (Normal and appropriate affect.) - Focused CV Perfusion Exam Vital Signs: Last Vital Signs Temp 97.7 F 04/04/16 04:52 Pulse 72 04/04/16 10:35 Resp 18 04/04/16 10:35 BP 125/58 L 04/04/16 10:35 Pulse Ox 97 04/04/16 10:35 - Lab Results 04/04/16 05:25 04/04/16 05:25 Laboratory Results - last 24 hr 04/04/16 04/04/16 04/04/16 04:45 04:45 05:25 WBC RBC Hgb Hct MCV MCH MCHC RDW Plt Count MPV Neut % (Auto) Lymph % (Auto) [place] % (Auto) Eos % (Auto) Baso % (Auto) Absolute Neuts (auto) Absolute Lymphs (auto) Sodium 143 Potassium 3.5 Chloride 107 Carbon Dioxide 22 Anion Gap 18 H BUN 8 Creatinine 0.60 Estimated GFR (MDRD) > 60 Glucose 103 H Calculated Osmolality 273 Calcium 9.5 Total Bilirubin 0.3 AST 24 ALT 40 Alkaline Phosphatase 73 Total Protein 7.8 Albumin 4.2 Lipase 96523 H TSH Urine Color Pale yellow Urine Clarity Clear Urine pH 6.0 Ur Specific [place] 1.005 Urine Protein Neg Urine Glucose (UA) Neg Urine Ketones Neg Urine Occult Blood 1+ H Urine Nitrite Neg Urine Bilirubin Neg Urine Urobilinogen <2.0 Ur Leukocyte Esterase Neg Urine RBC 0-2 Ur Epithelial Cells Occ Urine Bacteria Few Urine Test Neg 04/04/16 04/04/16 05:25 05:25 WBC 12.7 H RBC 4.36 Hgb 12.6 Hct 38.2 MCV 88 MCH 28.9 MCHC 33.0 RDW 12.9 Plt Count 247 MPV 8.1 Neut % (Auto) 79.3 H Lymph % (Auto) 15.3 L [place] % (Auto) 4.0 Eos % (Auto) 0.8 Baso % (Auto) 0.6 Absolute Neuts (auto) 10.03 H Absolute Lymphs (auto) 1.91 Sodium Potassium Chloride Carbon Dioxide Anion Gap BUN Creatinine Estimated GFR (MDRD) Glucose Calculated Osmolality Calcium Total Bilirubin AST ALT Alkaline Phosphatase Total Protein Albumin Lipase TSH 3.99 Urine Color Urine Clarity Urine pH Ur Specific [place] Urine Protein Urine Glucose (UA) Urine Ketones Urine Occult Blood Urine Nitrite Urine Bilirubin Urine Urobilinogen Ur Leukocyte Esterase Urine RBC Ur Epithelial Cells Urine Bacteria Urine Test - Diagnostic Findings 04/04/16 05:25 04/04/16 05:25 Laboratory Results - last 24 hr 04/04/16 04/04/16 04/04/16 04:45 04:45 05:25 WBC RBC Hgb Hct MCV MCH MCHC RDW Plt Count MPV Neut % (Auto) Lymph % (Auto) [place] % (Auto) Eos % (Auto) Baso % (Auto) Absolute Neuts (auto) Absolute Lymphs (auto) Sodium 143 Potassium 3.5 Chloride 107 Carbon Dioxide 22 Anion Gap 18 H BUN 8 Creatinine 0.60 Estimated GFR (MDRD) > 60 Glucose 103 H Calculated Osmolality 273 Calcium 9.5 Total Bilirubin 0.3 AST 24 ALT 40 Alkaline Phosphatase 73 Total Protein 7.8 Albumin 4.2 Lipase 11609 H TSH Urine Color Pale yellow Urine Clarity Clear Urine pH 6.0 Ur Specific [place] 1.005 Urine Protein Neg Urine Glucose (UA) Neg Urine Ketones Neg Urine Occult Blood 1+ H Urine Nitrite Neg Urine Bilirubin Neg Urine Urobilinogen <2.0 Ur Leukocyte Esterase Neg Urine RBC 0-2 Ur Epithelial Cells Occ Urine Bacteria Few Urine Test Neg 04/04/16 04/04/16 05:25 05:25 WBC 12.7 H RBC 4.36 Hgb 12.6 Hct 38.2 MCV 88 MCH 28.9 MCHC 33.0 RDW 12.9 Plt Count 247 MPV 8.1 Neut % (Auto) 79.3 H Lymph % (Auto) 15.3 L [place] % (Auto) 4.0 Eos % (Auto) 0.8 Baso % (Auto) 0.6 Absolute Neuts (auto) 10.03 H Absolute Lymphs (auto) 1.91 Sodium Potassium Chloride Carbon Dioxide Anion Gap BUN Creatinine Estimated GFR (MDRD) Glucose Calculated Osmolality Calcium Total Bilirubin AST ALT Alkaline Phosphatase Total Protein Albumin Lipase TSH 3.99 Urine Color Urine Clarity Urine pH Ur Specific [place] Urine Protein Urine Glucose (UA) Urine Ketones Urine Occult Blood Urine Nitrite Urine Bilirubin Urine Urobilinogen Ur Leukocyte Esterase Urine RBC Ur Epithelial Cells Urine Bacteria Urine Test - Assessment (1) Cholelithiasis K80.20 - CALCULUS OF GALLBLADDER W/O CHOLECYSTITIS W/O OBSTRUCTION Acute (2) Abdominal pain R10.9 - UNSPECIFIED ABDOMINAL PAIN Acute Present on Admission: Yes Related to her pancreatitis with positive Fish sign. (3) Pancreatitis K85.90 - ACUTE PANCREATITIS WITHOUT NECROSIS OR INFECTION, UNSP Acute Present on Admission: Yes Qualifiers: Chronicity: acute Pancreatitis type: biliary Acute pancreatitis complication: no infection or necrosis Qualified Code(s): K85.10 - Biliary acute pancreatitis without necrosis or infection Lipase is over 51,000. Positive Fish sign and gallstones are present. Will get surgical consult. No evidence of choledocholithiasis. (4) Leukocytosis D72.829 - ELEVATED WHITE BLOOD CELL COUNT, UNSPECIFIED Acute Present on Admission: Yes Qualifiers: Leukocytosis type: bandemia Qualified Code(s): D72.825 - Bandemia Associated with acute event surrounding her gallbladder. White count over 12, 000 and cultures have been done. (5) Obesity (BMI 35.0-39.9 without comorbidity) E66.9 - OBESITY, UNSPECIFIED Chronic Present on Admission: Yes Case Care Discussed with: Patient, Nursing Staff, Resource Management Total Time: One Hour and 8 minutes Critical Care: No Code: [id number]
[2016-04-04] MEDS: HYDROmorphone 1 MG INJECTION IV PRN ×3 (11:32→20:48)
[2016-04-04] MEDS ORDERED: CEFTRIAXONE 1 GM in D5W 100 ML IV SCH (12:00)
[2016-04-04] MEDS ORDERED: Vaccine Screening Complete SCH (12:00)
[2016-04-04] MEDS: PROBIOTIC BLEND TAB PO SCH ×2 (12:47→16:53)
[2016-04-04] MEDS: NS/KCl 20 mEq 1,000 ML IV SCH (12:47)
[2016-04-04] MEDS: ENOXAPARIN 60 MG/0.6 ML PFS SQ SCH (16:51)
--- NOTE | 2016-04-04 17:57 | PCM.SURGCO ---
Consult Reason: Abdominal Pain, Other (pancreatitis) - History of Present Illness 20 YO WF presented with epigastric abdominal pain that was severe. Associated with N/V. No alleviating factors. She was found to have cholecystitis and pancreatitis. Now receiving IVF and supportive care. Chief Complaint: Right upper quadrant and epigastric abdominal pain starting at 2:00 a.m. today at work after eating some peanut butter crackers. - Past Medical and Surgical History Cardiac History: Reports: No Significant History Respiratory History: Reports: No Significant History GI/ History: Reports: No Significant History Systemic History: Reports: No Significant History Musculoskeletal History: Reports: No Significant History Psychological History: Reports: No Significant History, Depression (Goes to [facility] psychiatric services and gets her antidepressants there.). Denies: Alcoholism, Substance Use Disorder Neurological History: Reports: No Significant History Past Surgical History: Reports: No Significant History. Denies: Hysterectomy Allergies No Known Allergies Allergy (Verified 04/04/16 04:52) Home Medications Fluoxetine [Prozac] 20 mg PO DAILY 04/04/16 Norgestimate-Ethinyl Estradiol [Trinessa Tablet] 1 tab PO DAILY 04/04/16 Sumatriptan Succinate [Imitrex] 100 mg PO DAILY PRN 04/04/16 Trazodone HCl [Desyrel] 25 mg PO QHS 04/04/16 - Social History Travel Outside of [place] in the Last 3 Months?: No Lives: With Family Smoking Status: Former smoker Social History: Denies: Alcohol Use, Substance Use Disorder - Family History Reports: No Significant History, Hypertension (father, aunt, uncle,PGM), Diabetes (Uncle, PGF, Aunt), Cancer (PGF), Stroke (aunt), Cardiac Disorders (PGF , aunt, uncle, MGM), Other (Sister had cholelithiasis requiring removal of gallbladder) - Review of Systems Constitutional: Chills, Loss of Appetite Eyes: negative: Pain, Photophobia Ears: negative: Hearing Loss, Pain, Tinnitus Nose: negative: Congestion, Discharge Mouth: negative: Stomatitis Throat/Neck: negative: Hoarseness, Lymphadenopathy Respiratory: negative: Cough, Shortness of Breath, Wheezing Cardiovascular: negative: Edema, Orthopnea, Palpitations Gastrointestinal: Nausea, Vomiting, Abdominal Pain. negative: Diarrhea, Constipation, Hematochezia Genitourinary: negative: Dysuria, Hematuria Neurological: negative: Headache, Seizure Integumentary: negative: Itching, Rash, Wound Allergic/Immunologic: negative: Hives, Itching Hematologic: negative: Easy Bruising, Easy Bleeding Endocrine: negative: Weight Gain, Weight Loss - Physical Exam Vital Signs: Initial Vitals Temperature 97.7 F 04/04/16 04:52 Pulse Rate 82 04/04/16 04:52 Respiratory Rate 18 04/04/16 04:52 Blood Pressure 153/78 04/04/16 04:52 Pulse Oxygen Saturation 96 04/04/16 04:52 Constitutional: No apparent distress, Alert Oriented to: Time, Person, Place - HEENT Head: negative: Deformity, Swelling Eye: negative: Pale Conjunctiva, Scleral Icterus Nose: negative: Discharge, Ecchymosis Respiratory: Normal - CTA. negative: Rales, Rhonchi, Wheezes Cardiovascular: negative: Bradycardia, Tachycardia, Irregular, Diastolic murmur , Systolic murmur - GI Auscultation: Normal. negative: Bruit Palpation: Normal. negative: Enlarged liver, Enlarged spleen Tenderness: Moderate, RUQ, Epigastric. negative: Rebound, Rigidity Fish's Sign: Negative - Musculoskeletal Back: negative: Ecchymosis, CVA Tenderness Extremities: negative: Clubbing, Cyanosis, Edema - Integumentary Skin: Warm, Dry Lymphatics: negative: Adenopathy, Inguinal Erythema - Lab Results 04/04/16 05:25 04/04/16 05:25 - Assessment/Plan (1) Abdominal pain R10.9 - UNSPECIFIED ABDOMINAL PAIN Acute Present on Admission: Yes (2) Cholelithiasis K80.20 - CALCULUS OF GALLBLADDER W/O CHOLECYSTITIS W/O OBSTRUCTION Chronic Present on Admission: Yes (3) Leukocytosis D72.829 - ELEVATED WHITE BLOOD CELL COUNT, UNSPECIFIED Acute Present on Admission: Yes bandemia D72.825 - Bandemia (4) Pancreatitis K85.90 - ACUTE PANCREATITIS WITHOUT NECROSIS OR INFECTION, UNSP Acute acute biliary no infection or necrosis K85.10 - Biliary acute pancreatitis without necrosis or infection Plan: Will need to wait until pancreatitis resolves. Then will plan on cholecystectomy.
[2016-04-04] MEDS: TRAZODONE 50 MG TAB PO SCH (20:52)
[2016-04-05] MEDS: HYDROmorphone 1 MG INJECTION IV PRN ×6 (02:31→23:27)
[2016-04-05] MEDS: ONDANSETRON HCL 4 MG/2 ML VIAL IV PRN ×2 (05:45→13:27)
[2016-04-05 07:09] LABS: AUTOMATED BASOPHIL 0.4 % (0-2); AUTOMATED EOSINOPHIL 2.3 % (0-5); AUTOMATED LYMPH 22.8 % (17-44); AUTOMATED MONOCYTE 4.3 % (3-10); AUTOMATED NEUTROPHIL 70.2 % (45-76); MPV 7.6 fL (7.4-10.4)
[2016-04-05] MEDS: NS/KCl 20 mEq 1,000 ML IV SCH ×2 (07:12→08:22)
[2016-04-05 07:30] LABS: BLOOD UREA NITROGEN 7 MG/DL (7-17); CALCIUM 8.9 MG/DL (8.4-10.2); CALCULATED OSMOLALITY 265 MOs/Kg (270-290); CHLORIDE 106 mEq/L (98-107); GLUCOSE 80 mg/dL (70-99); LDL (calc.) 69.8 MG/DL (<100); SODIUM LEVEL 139 mEq/L (137-146); VLDL (calc.) 18.2 MG/DL (5-40)
[2016-04-05] MEDS: FLUOXETINE 20 MG/5 ML PO SCH (08:21)
[2016-04-05] MEDS ORDERED: NORGESTIMATE ETHINYL ESTRADIOL PO SCH (09:00)
[2016-04-05] MEDS ORDERED: SUMATRIPTAN SUCCINATE 25 MG TAB PO PRN (09:00)
--- NOTE | 2016-04-05 09:00 | GENMEDPROG ---
Chief Complaint: MRSA nares now on contact precaution. Says her abdominal pain is much improved today. Notes Reviewed: Yes: Events from last night noted and discussed with Clinical Staff Current Medication List: Reviewed DVT Prophylaxis: Yes - Physical Examination Vital Signs and I&O: Last Vital Signs Temp 98.3 F 04/05/16 04:46 Pulse 80 04/05/16 04:46 Resp 18 04/05/16 04:46 BP 119/64 04/05/16 04:46 Pulse Ox 98 04/05/16 04:46 Oxygen Pulse Oxygen Saturation 98 O2 Device Room Air Oxygen Flow Rate Fraction of Inspired Oxygen ( FIO2) Intake & Output 04/02/16 04/03/16 04/04/16 04/05/16 23:59 23:59 23:59 23:59 Intake Total 1967 765 Balance 1967 765 General: Alert, Oriented x3, No acute distress, Well appearing, Well nourished HEENT: Normal (Normocephalic, atraumatic;EOMI.Sclera white, Nares patent, without discharge or bleeding. No oropharyngeal lesions or erythema. Mucous membranes are dry.) Neck: Non-tender, Full range of motion, Normal Trachea alignment, Normal inspection (No cervical lymphadenopathy. No supraclavicular lymphadenopathy.), No Masses palpable, Supple Lymphatics: Normal. negative: Adenopathy, Inguinal Erythema Respiratory: Normal - CTA, Diminished. negative: Rales, Rhonchi, Wheezes Cardiovascular: Regular rate and rhythm (No bradycardia or tachycardia), Normal S1, No Gallops,Rubs/Murmurs, Normal S2, Good Pedal Pulses (DP pulses 2+ bilaterally) GI: Soft, No hepatospenomegaly, No masses, Obese (BMI 39.4), Tenderness ( Diffuse upper abdominal mild tenderness), Other (Pendulous panniculus present). negative: Non tender Extremities/Musculoskeletal: Normal pulses (DP pulses 2+ bilaterally), Swelling , Edema (Mild puffy edema associated with obesity). negative: Clubbing Skin: Warm,Dry and Intact, No rashes, No significant lesion Neurological: Strength at 5/5 X4 ext (Motor 5/5 throughout.), Normal tone, Cranial nerves 3-12 NL ( 2-12 grossly intact.) Psych/Mental Status: Appropriate, Normal Affect Lab/DI/Studies Reviewed: Laboratory Results - last 24 hr 04/04/16 04/05/16 04/05/16 05:25 06:46 06:46 WBC 8.4 RBC 3.75 L Hgb 11.0 L D Hct 32.8 L MCV 88 MCH 29.4 MCHC 33.6 RDW 13.0 Plt Count 224 MPV 7.6 Neut % (Auto) 70.2 Lymph % (Auto) 22.8 [place] % (Auto) 4.3 Eos % (Auto) 2.3 Baso % (Auto) 0.4 Absolute Neuts (auto) 5.88 Absolute Lymphs (auto) 1.85 Sodium 139 Potassium 4.6 D Chloride 106 Carbon Dioxide 26 Anion Gap 12 BUN 7 Creatinine 0.60 Estimated GFR (MDRD) > 60 Glucose 80 Calculated Osmolality 265 L Calcium 8.9 Triglycerides 91 Cholesterol 126 LDL Cholesterol, Calc 69.8 VLDL Cholesterol, Calc 18.2 HDL Cholesterol 38.0 L Cholesterol/HDL Ratio 3.3 Lipase 1503 H TSH 3.99 04/05/16 06:46 04/05/16 06:46 - Assessment (1) Cholelithiasis Chronic K80.20 - CALCULUS OF GALLBLADDER W/O CHOLECYSTITIS W/O OBSTRUCTION Qualifiers: Cholelithiasis location: gallbladder Cholecystitis presence: with cholecystitis Cholecystitis acuity: acute Biliary obstruction: without biliary obstruction Qualified Code(s): K80.00 - Calculus of gallbladder with acute cholecystitis without obstruction Comment/Plan: Patient getting IV Rocephin switched to Zosyn April 05, 2016 to give better anaerobic coverage and Dr. Sexton agreed to take out her gallbladder when pancreatitis is improved. (2) Abdominal pain Acute R10.9 - UNSPECIFIED ABDOMINAL PAIN Comment/Plan: Related to her pancreatitis with positive Fish sign. Lipase has dropped to little over 1500 today. Ice chips only for now. (3) Pancreatitis Acute K85.90 - ACUTE PANCREATITIS WITHOUT NECROSIS OR INFECTION, UNSP Qualifiers: Chronicity: acute Pancreatitis type: biliary Acute pancreatitis complication: no infection or necrosis Qualified Code(s): K85.10 - Biliary acute pancreatitis without necrosis or infection Comment/Plan: Lipase is over 1500 which is much improved from yesterday when it was over 51,000. Now only mildly Positive Fish sign and gallstones are present. Appreciate surgical consult. No evidence of choledocholithiasis. Gallbladder out soon. (4) Leukocytosis Acute D72.829 - ELEVATED WHITE BLOOD CELL COUNT, UNSPECIFIED Qualifiers: Leukocytosis type: bandemia Qualified Code(s): D72.825 - Bandemia Comment/Plan: Associated with acute event surrounding her gallbladder. White count over 12,000 and cultures have been done. (5) Obesity (BMI 35.0-39.9 without comorbidity) Chronic E66.9 - OBESITY, UNSPECIFIED Comment/Plan: BMI almost breaks 40. Significant weight loss is necessary. Getting a steady diet of ice chips now. Case Care Discussed with: Patient, Nursing Staff, Resource Management Education/Counseling Given To: Patient Education/Counseling Given Regarding: Diagnosis Total Time: 36 min Critical Care: No Code: 35200 (12+)
[2016-04-05] MEDS ORDERED: MUPIROCIN 2% OINT 22 GM TUBE NAS SCH (11:00)
[2016-04-05] MEDS: MUPIROCIN 2% OINT 22 GM TUBE NAS SCH ×2 (12:40→21:54)
--- NOTE | 2016-04-05 13:23 | PCM.SURGRO ---
- Subjective Patient: Reports: No new complaints, Other - Objective / Physical Exam Vital Signs: Temperature: 98.1 F (04/05/16 09:23) HR: 67 (04/05/16 09:23)RR: 18 (04/05/16 09: 23) BP: 108/56 (04/05/16 09:23)Pulse Ox: 98 (04/05/16 09:23) General: Alert, Cooperative HEENT: EOMI, Anicteric Sclera Respiratory: negative: Rales, Rhonchi Cardiovascular: Regular rate and rhythm, No Gallops,Rubs/Murmurs Gastrointestinal: Tender (mildly). negative: Distended Extremities: negative: Tenderness, Edema, Clubbing Psych/Mental Status: Normal Affect. negative: Anxious Skin: Warm,Dry and Intact, No rashes Laboratory/Diagnostics Reviewed: 04/05/16 06:46 04/05/16 06:46 Laboratory Results - last 24 hr 04/05/16 04/05/16 06:46 06:46 WBC 8.4 RBC 3.75 L Hgb 11.0 L D Hct 32.8 L MCV 88 MCH 29.4 MCHC 33.6 RDW 13.0 Plt Count 224 MPV 7.6 Neut % (Auto) 70.2 Lymph % (Auto) 22.8 [place] % (Auto) 4.3 Eos % (Auto) 2.3 Baso % (Auto) 0.4 Absolute Neuts (auto) 5.88 Absolute Lymphs (auto) 1.85 Sodium 139 Potassium 4.6 D Chloride 106 Carbon Dioxide 26 Anion Gap 12 BUN 7 Creatinine 0.60 Estimated GFR (MDRD) > 60 Glucose 80 Calculated Osmolality 265 L Calcium 8.9 Triglycerides 91 Cholesterol 126 LDL Cholesterol, Calc 69.8 VLDL Cholesterol, Calc 18.2 HDL Cholesterol 38.0 L Cholesterol/HDL Ratio 3.3 Lipase 1503 H - Assessment and Plan (1) Abdominal pain Acute R10.9 - UNSPECIFIED ABDOMINAL PAIN Present on Admission: Yes (2) Cholelithiasis Chronic K80.20 - CALCULUS OF GALLBLADDER W/O CHOLECYSTITIS W/O OBSTRUCTION Present on Admission: Yes gallbladder with cholecystitis acute without biliary obstruction K80.00 - Calculus of gallbladder with acute cholecystitis without obstruction (3) Leukocytosis Acute D72.829 - ELEVATED WHITE BLOOD CELL COUNT, UNSPECIFIED Present on Admission: Yes bandemia D72.825 - Bandemia (4) Pancreatitis Acute K85.90 - ACUTE PANCREATITIS WITHOUT NECROSIS OR INFECTION, UNSP Present on Admission: Yes acute biliary no infection or necrosis K85.10 - Biliary acute pancreatitis without necrosis or infection Plan: Patient improving. Will need cholecystectomy once pancreatitis resolved. Patient agreeable.
[2016-04-05] MEDS: PIPERACILLIN AND TAZOBACTAM 4.5 GM in D5W 100 ML IV SCH ×3 (13:26→22:53)
[2016-04-05] MEDS: PROBIOTIC BLEND TAB PO SCH ×2 (13:27→16:11)
[2016-04-05] MEDS: ENOXAPARIN 60 MG/0.6 ML PFS SQ SCH (16:12)
[2016-04-05] MEDS: CHLORHEXIDINE (HIBICLENS) 4 OZ BOTTLE TOP SCH (21:55)
[2016-04-05] MEDS: TRAZODONE 50 MG TAB PO SCH (22:02)
[2016-04-06] MEDS: HYDROmorphone 1 MG INJECTION IV PRN ×2 (02:56→23:31)
[2016-04-06] MEDS: NS/KCl 20 mEq 1,000 ML IV SCH (06:29)
[2016-04-06] MEDS: PIPERACILLIN AND TAZOBACTAM 4.5 GM in D5W 100 ML IV SCH ×4 (06:29→23:21)
[2016-04-06 07:17] LABS: AUTOMATED BASOPHIL 0.4 % (0-2); AUTOMATED EOSINOPHIL 3.2 % (0-5); AUTOMATED LYMPH 18.5 % (17-44); AUTOMATED MONOCYTE 6.4 % (3-10); AUTOMATED NEUTROPHIL 71.5 % (45-76)
[2016-04-06 07:40] LABS: BLOOD UREA NITROGEN 7 MG/DL (7-17); CALCULATED OSMOLALITY 265 MOs/Kg (270-290); CHLORIDE 103 mEq/L (98-107); GLUCOSE 75 mg/dL (70-99); SODIUM LEVEL 139 mEq/L (137-146)
[2016-04-06] MEDS: MUPIROCIN 2% OINT 22 GM TUBE NAS SCH ×2 (07:40→23:22)
[2016-04-06] MEDS: FLUOXETINE 20 MG/5 ML PO SCH (07:42)
--- NOTE | 2016-04-06 10:46 | GENMEDPROG ---
Chief Complaint: less ruq pain today Notes Reviewed: Yes: Events from last night noted and discussed with Clinical Staff Current Medication List: Reviewed DVT Prophylaxis: Yes - Physical Examination Vital Signs and I&O: Last Vital Signs Temp 98.0 F 04/05/16 14:00 Pulse 79 04/06/16 05:26 Resp 18 04/06/16 05:26 BP 101/51 L 04/06/16 05:26 Pulse Ox 96 04/06/16 05:26 Oxygen Pulse Oxygen Saturation 96 O2 Device Room Air Oxygen Flow Rate Fraction of Inspired Oxygen ( FIO2) Intake & Output 04/03/16 04/04/16 04/05/16 04/06/16 23:59 23:59 23:59 23:59 Intake Total 1966 1910 4463 Balance 1966 1910 4463 Patient's weight 94.971 kg General: Alert, Cooperative HEENT: EOMI, Anicteric Sclera Neck: Non-tender, Full range of motion, Normal Trachea alignment, Normal inspection (No cervical lymphadenopathy. No supraclavicular lymphadenopathy.), No Masses palpable, Supple Lymphatics: Normal (No lymph node swelling or pain.) Respiratory: Diminished. negative: Accessory Muscle Use, Rales, Rhonchi, Wheezes Cardiovascular: Regular rate and rhythm, Normal S1, No Gallops,Rubs/Murmurs, Normal S2 GI: Normal bowel sounds, Soft, No hepatospenomegaly, No masses, Obese, Tenderness (mild ruq tenderness), Other (mild fish's sign) Extremities/Musculoskeletal: negative: Tenderness, Edema, Clubbing Skin: Warm,Dry and Intact, No rashes Neurological: Strength at 5/5 X4 ext (Motor 5/5 throughout.), Normal tone, Cranial nerves 3-12 NL ( 2-12 grossly intact.) Psych/Mental Status: Appropriate, Normal Affect, Cooperative. negative: Anxious Lab/DI/Studies Reviewed: Laboratory Results - last 24 hr 04/06/16 04/06/16 06:34 06:34 WBC 6.8 RBC 3.86 L Hgb 11.4 L Hct 33.5 L MCV 87 MCH 29.4 MCHC 33.9 RDW 12.8 Plt Count 228 MPV 8.0 Neut % (Auto) 71.5 Lymph % (Auto) 18.5 [place] % (Auto) 6.4 Eos % (Auto) 3.2 Baso % (Auto) 0.4 Absolute Neuts (auto) 4.83 Absolute Lymphs (auto) 1.22 Sodium 139 Potassium 4.4 Chloride 103 Carbon Dioxide 25 Anion Gap 15 BUN 7 Creatinine 0.70 Estimated GFR (MDRD) > 60 Glucose 75 Calculated Osmolality 265 L Calcium 9.0 Lipase 448 H - Assessment (1) Cholelithiasis Chronic K80.20 - CALCULUS OF GALLBLADDER W/O CHOLECYSTITIS W/O OBSTRUCTION Qualifiers: Cholelithiasis location: gallbladder Cholecystitis presence: with cholecystitis Cholecystitis acuity: acute Biliary obstruction: without biliary obstruction Qualified Code(s): K80.00 - Calculus of gallbladder with acute cholecystitis without obstruction Comment/Plan: Patient getting Zosyn April 05, 2016 to give better anaerobic coverage and Dr. Sexton agreed to take out her gallbladder when pancreatitis is improved. Patient feeling better and advance diet today. If tolerates this may be able to discharge tomorrow and follow up outpatient with surgery. (2) Abdominal pain Acute R10.9 - UNSPECIFIED ABDOMINAL PAIN Comment/Plan: Related to her pancreatitis with positive Fish sign. Lipase has dropped to little over 440 today. Advance diet to clears. (3) Pancreatitis Acute K85.90 - ACUTE PANCREATITIS WITHOUT NECROSIS OR INFECTION, UNSP Qualifiers: Chronicity: acute Pancreatitis type: biliary Acute pancreatitis complication: no infection or necrosis Qualified Code(s): K85.10 - Biliary acute pancreatitis without necrosis or infection Comment/Plan: Lipase is over 440 which is much improved from yesterday when it was noticeably higher. Now only minimally Positive Fish sign and gallstones are present. Appreciate surgical consult. No evidence of choledocholithiasis. Gallbladder out soon per Dr. Sexton. (4) Obesity (BMI 35.0-39.9 without comorbidity) Chronic E66.9 - OBESITY, UNSPECIFIED Comment/Plan: BMI almost breaks 40. Significant weight loss is necessary. Getting a steady diet of full liquids. (5) Leukocytosis Acute D72.829 - ELEVATED WHITE BLOOD CELL COUNT, UNSPECIFIED Qualifiers: Leukocytosis type: bandemia Qualified Code(s): D72.825 - Bandemia Comment/Plan: Associated with acute event surrounding her gallbladder. White count over 12,000 and cultures have been done. Case Care Discussed with: Patient, Nursing Staff, Resource Management Education/Counseling Given To: Patient Education/Counseling Given Regarding: Diagnosis, Treatment Total Time: 37 min Critical Care: No Code: 82829 (12+)
[2016-04-06] MEDS: PROBIOTIC BLEND TAB PO SCH ×2 (11:52→17:00)
--- NOTE | 2016-04-06 16:49 | PCM.SURGRO ---
- Subjective Patient: Reports: No new complaints, Feels better. Denies: Still having pain, Nausea, Vomiting - Objective / Physical Exam Vital Signs: Temperature: 97.8 F (04/06/16 14:00) HR: 80 (04/06/16 14:00)RR: 18 (04/06/16 14: 00) BP: 124/59 (04/06/16 14:00)Pulse Ox: 97 (04/06/16 14:00) General: Alert, Oriented x3, Cooperative HEENT: EOMI, Anicteric Sclera Respiratory: Normal - CTA. negative: Rales, Rhonchi Cardiovascular: Regular rate and rhythm, No Gallops,Rubs/Murmurs Gastrointestinal: Soft. negative: Distended, Tender, Guarding Back: negative: Ecchymosis, CVA Tenderness Extremities: negative: Tenderness, Swelling, Edema, Clubbing Psych/Mental Status: Normal Affect, Cooperative. negative: Agitated Neurological: Normal speech. negative: Drowsy, Somnolent Skin: Warm,Dry and Intact, No rashes, No breakdown Laboratory/Diagnostics Reviewed: 04/06/16 06:34 04/06/16 06:34 Laboratory Results - last 24 hr 04/06/16 04/06/16 06:34 06:34 WBC 6.8 RBC 3.86 L Hgb 11.4 L Hct 33.5 L MCV 87 MCH 29.4 MCHC 33.9 RDW 12.8 Plt Count 228 MPV 8.0 Neut % (Auto) 71.5 Lymph % (Auto) 18.5 [place] % (Auto) 6.4 Eos % (Auto) 3.2 Baso % (Auto) 0.4 Absolute Neuts (auto) 4.83 Absolute Lymphs (auto) 1.22 Sodium 139 Potassium 4.4 Chloride 103 Carbon Dioxide 25 Anion Gap 15 BUN 7 Creatinine 0.70 Estimated GFR (MDRD) > 60 Glucose 75 Calculated Osmolality 265 L Calcium 9.0 Lipase 448 H - Assessment and Plan (1) Abdominal pain Acute R10.9 - UNSPECIFIED ABDOMINAL PAIN Present on Admission: Yes (2) Cholelithiasis Chronic K80.20 - CALCULUS OF GALLBLADDER W/O CHOLECYSTITIS W/O OBSTRUCTION Present on Admission: Yes gallbladder with cholecystitis acute without biliary obstruction K80.00 - Calculus of gallbladder with acute cholecystitis without obstruction (3) Leukocytosis Acute D72.829 - ELEVATED WHITE BLOOD CELL COUNT, UNSPECIFIED Present on Admission: Yes bandemia D72.825 - Bandemia (4) Pancreatitis Acute K85.90 - ACUTE PANCREATITIS WITHOUT NECROSIS OR INFECTION, UNSP Present on Admission: Yes acute biliary no infection or necrosis K85.10 - Biliary acute pancreatitis without necrosis or infection Plan: Continues to improve. Agree with advancing diet, rechecking lipase in AM.
[2016-04-06] MEDS ORDERED: ENOXAPARIN 40 MG/0.4 ML PFS SQ SCH (18:00)
[2016-04-06] MEDS: TRAZODONE 50 MG TAB PO SCH (23:23)
[2016-04-06] MEDS: CHLORHEXIDINE (HIBICLENS) 4 OZ BOTTLE TOP SCH (23:23)
[2016-04-07] MEDS: NS/KCl 20 mEq 1,000 ML IV SCH ×2 (01:27→05:02)
[2016-04-07] MEDS: PIPERACILLIN AND TAZOBACTAM 4.5 GM in D5W 100 ML IV SCH ×2 (05:01→11:32)
[2016-04-07] MEDS: HYDROmorphone 1 MG INJECTION IV PRN (06:12)
[2016-04-07 06:21] VITALS: BP 113/66; PULSE 67; TEMP 98
[2016-04-07 07:19] LABS: AUTOMATED BASOPHIL 0.3 % (0-2); AUTOMATED EOSINOPHIL 4.6 % (0-5); AUTOMATED LYMPH 23.6 % (17-44); AUTOMATED NEUTROPHIL 66.5 % (45-76); MPV 8.2 fL (7.4-10.4)
[2016-04-07 07:34] LABS: BLOOD UREA NITROGEN 5 MG/DL (7-17); CALCIUM 9.3 MG/DL (8.4-10.2); CALCULATED OSMOLALITY 267 MOs/Kg (270-290); CHLORIDE 105 mEq/L (98-107); GLUCOSE 116 mg/dL (70-99); SODIUM LEVEL 140 mEq/L (137-146)
[2016-04-07] MEDS: MUPIROCIN 2% OINT 22 GM TUBE NAS SCH (08:15)
[2016-04-07] MEDS ORDERED: FLUOXETINE 20 MG CAP PO SCH (09:00)
[2016-04-07] MEDS: PROBIOTIC BLEND TAB PO SCH (11:40)
--- NOTE | 2016-04-07 12:51 | PCM.SURGRO ---
- Subjective Patient: Reports: No new complaints, Feels better - Objective / Physical Exam Vital Signs: Temperature: 98 F (04/07/16 06:00) HR: 67 (04/07/16 06:00)RR: 18 (04/07/16 06:00 ) BP: 113/66 (04/07/16 06:00)Pulse Ox: 99 (04/07/16 06:00) General: Alert, Oriented x3, Cooperative HEENT: EOMI, Anicteric Sclera Respiratory: Normal - CTA. negative: Rales, Rhonchi Cardiovascular: Regular rate and rhythm, No Gallops,Rubs/Murmurs Gastrointestinal: Soft. negative: Distended, Tender Back: negative: Ecchymosis, CVA Tenderness Extremities: negative: Tenderness, Swelling, Edema, Clubbing Psych/Mental Status: Normal Affect, Cooperative. negative: Agitated Neurological: Normal speech. negative: Drowsy, Somnolent Skin: Warm,Dry and Intact, No rashes, No breakdown Laboratory/Diagnostics Reviewed: 04/07/16 06:21 04/07/16 06:21 Laboratory Results - last 24 hr 04/07/16 04/07/16 06:21 06:21 WBC 5.9 RBC 3.97 L Hgb 11.7 L Hct 34.6 L MCV 87 MCH 29.4 MCHC 33.7 RDW 12.8 Plt Count 255 MPV 8.2 Neut % (Auto) 66.5 Lymph % (Auto) 23.6 [place] % (Auto) 5.0 Eos % (Auto) 4.6 Baso % (Auto) 0.3 Absolute Neuts (auto) 3.89 Absolute Lymphs (auto) 1.36 Sodium 140 Potassium 3.9 Chloride 105 Carbon Dioxide 26 Anion Gap 13 BUN 5 L Creatinine 0.60 Estimated GFR (MDRD) > 60 Glucose 116 H Calculated Osmolality 267 L Calcium 9.3 Lipase 307 H - Assessment and Plan (1) Abdominal pain Acute R10.9 - UNSPECIFIED ABDOMINAL PAIN Present on Admission: Yes (2) Cholelithiasis Chronic K80.20 - CALCULUS OF GALLBLADDER W/O CHOLECYSTITIS W/O OBSTRUCTION Present on Admission: Yes gallbladder with cholecystitis acute without biliary obstruction K80.00 - Calculus of gallbladder with acute cholecystitis without obstruction (3) Leukocytosis Acute D72.829 - ELEVATED WHITE BLOOD CELL COUNT, UNSPECIFIED Present on Admission: Yes bandemia D72.825 - Bandemia (4) Pancreatitis Acute K85.90 - ACUTE PANCREATITIS WITHOUT NECROSIS OR INFECTION, UNSP Present on Admission: Yes acute biliary no infection or necrosis K85.10 - Biliary acute pancreatitis without necrosis or infection Plan: Patient tolerated PO's. Lipase remains slightly elevated. Will need to keep on full liquids and allow this to improve further prior to going ahead with LC IOC. Pat agreeable to do this as an outpatient.
--- NOTE | 2016-04-07 12:55 | PCM.DCS92 ---
- Final/Secondary Discharge Diagnosis (1) Pancreatitis Acute K85.90 - ACUTE PANCREATITIS WITHOUT NECROSIS OR INFECTION, UNSP Present on Admission: Yes acute biliary no infection or necrosis K85.10 - Biliary acute pancreatitis without necrosis or infection Comment: Lipase initially 51,226. Now 307. Clinically appears much better. No clear evidence of choledocholithiasis though she did have a positive Fish sign and gallstones. will arrange for outpatient cholecystectomy (2) Abdominal pain Acute R10.9 - UNSPECIFIED ABDOMINAL PAIN Present on Admission: Yes Comment: Overall much better. Stable for discharge home. (3) Obesity (BMI 35.0-39.9 without comorbidity) Chronic E66.9 - OBESITY, UNSPECIFIED Present on Admission: Yes Comment: BMI almost breaks 40. Significant weight loss is necessary. Getting a steady diet of full liquids. Discharge Disposition: Home Discharge Condition: Improved Cognitive Discharge Status: Unimpaired Fuctional Discharge Status: Independent Physician Follow up/Referrals: Rafat Nesbitt MD [Staff Physician] - [facility] Tree Sexton MD [Staff Physician] - Call for Appointment Home Medications / New Prescriptions: New Oxycodone HCl [Roxicodone] 5 mg PO Q6H PRN #30 tablet PRN Reason: Pain Continue Trazodone HCl [Desyrel] 25 mg PO QHS Fluoxetine [Prozac] 20 mg PO DAILY Norgestimate-Ethinyl Estradiol [Trinessa Tablet] 1 tab PO DAILY Sumatriptan Succinate [Imitrex] 100 mg PO DAILY PRN PRN Reason: Migraine Headache Discharge Home Medication List Fluoxetine [Prozac] 20 mg PO DAILY 04/04/16 [History Confirmed 04/04/16 Last Taken 04/02/16] Norgestimate-Ethinyl Estradiol [Trinessa Tablet] 1 tab PO DAILY 04/04/16 [ History Confirmed 04/04/16 Last Taken 04/01/16] Sumatriptan Succinate [Imitrex] 100 mg PO DAILY PRN 04/04/16 [History Confirmed 04/04/16 Last Taken Unknown] Trazodone HCl [Desyrel] 25 mg PO QHS 04/04/16 [History Confirmed 04/04/16 Last Taken 04/03/16] Oxycodone HCl [Roxicodone] 5 mg PO Q6H PRN #30 tablet 04/07/16 [Rx Last Taken Unknown] O2 Device: Room Air Diet at Discharge: Heart Healthy Activity: As Tolerated Call Office For: Worsening Symptoms - DC Summary Notes Hospital Course Note:: Discharge summary on patient named RUPINDER HERNANDEZ admitted to [facility] on 04/04/16 by Raghu Flores MD. Date of discharge is []. Ms Hernandez is a pleasant 20-year-old white female who presented to the hospital with complaint of right upper quadrant and epigastric abdominal pain. Symptoms started suddenly at 2 o'clock in the morning. When she arrived in the emergency room she was found to have a lipase of 51,000. She was admitted to the hospital for further evaluation management of acute pancreatitis. Right upper quadrant ultrasound showed numerous gallstones. She did have a positive Fish sign but no clear choledocholithiasis. She was admitted to the hospital , made NPO, given IV fluids and IV analgesics. We had Dr. Sexton with General surgery see her in consultation. Over the course of her hospital stay she has improved significantly. Her lipase is back to normal and she has minimal pain. She is being discharged home to allow her to continue to recover as an outpatient. Dr. Sexton will see her in follow-up and arrange for outpatient cholecystectomy. Total Time: 45 minutes - Physical Exam Vital Signs: Last Vital Signs Temp 98 F 04/07/16 06:00 Pulse 67 04/07/16 06:00 Resp 18 04/07/16 06:00 BP 113/66 04/07/16 06:00 Pulse Ox 99 04/07/16 06:00 Oxygen Pulse Oxygen Saturation 99 O2 Device Room Air Oxygen Flow Rate Fraction of Inspired Oxygen ( FIO2) Constitutional: No apparent distress, Alert, Well nourished, Well appearing Oriented to: Time, Person, Place - HEENT Head: Normal. negative: Deformity, Swelling Eye: Normal. negative: Pale Conjunctiva, Scleral Icterus Oropharynx: Normal Nose: negative: Discharge, Ecchymosis - Respiratory/Cardiovascular Respiratory: Normal - CTA. negative: Rales, Rhonchi Cardiovascular: Normal - GI Auscultation: Normal. negative: Bruit Palpation: Normal. negative: Enlarged liver, Enlarged spleen Tenderness: Moderate, RUQ, Epigastric. negative: Rebound, Rigidity Fish's Sign: Negative - Musculoskeletal Back: Normal. negative: Ecchymosis, CVA Tenderness Extremities: Normal - Integumentary Skin: Warm, Dry Lymphatics: Normal (No lymph node swelling or pain.) - Neurologic Memory Impaired: Normal Motor Function: Normal Cranial Nerve: Normal Cerebellar: Normal (Babinski: toes downgoing bilaterally. Intact Finger to nose. Sensory grossly intact to light touch. Intact rapid alternating movements bilaterally. No pronator drift.) Mood Description: Normal (Fully oriented. Normal and appropriate affect.) Thought: Coherent Perception: Normal (Normal and appropriate affect.)
== END 2016-04-07 14:24 | disposition home or self-care (01) | DRG 444 ==
LOC: ED 04:37 → MPS3 09:33
PROVIDERS: ADMIT Internal Medicine; ATTEND Hospitalist
DX: K80.00 Calculus of gallbladder with acute cholecystitis without obstruction (principal); K85.10 Biliary acute pancreatitis without necrosis or infection; E66.01 Morbid (severe) obesity due to excess calories; F32.9 Major depressive disorder, single episode, unspecified; Z87.891 Personal history of nicotine dependence; Z68.39 Body mass index [BMI] 39.0-39.9, adult; Z79.3 Long term (current) use of hormonal contraceptives; Z22.322 Carrier or suspected carrier of Methicillin resistant Staphylococcus aureus
CPT/HCPCS: 36415; 74177; 76705; 80048; 80053; 80061; 81001; 81025; 83690; 84443; 85025; 87040; 87086; 96361; 96372; 96374; 96375; 96376; 99284; A9698; G0237; J0696; J1170; J1650; J2405; J2543; J2550; J3490; J7040; J7060